=== PATIENT | female | born 1975 | race Caucasian/White ===

== ENCOUNTER 2016-08-06 08:27 | Day surgery (SDC) | payer OTHER ==
[~2016-08-06] VITALS: Ht 175.3 cm; Wt 85.3 kg
[2016-08-06 08:58] VITALS: Ht 175.3 cm; Wt 85.3 kg
[2016-08-06] MEDS ORDERED: SINGULAIR (09:04)
[2016-08-06] MEDS ORDERED: LANSOPRAZOLE (09:04)
[2016-08-06] MEDS ORDERED: MOMETASONE (09:04)
[2016-08-06] MEDS ORDERED: CLARITIN (09:04)
[2016-08-06 09:15] VITALS: BP 126/56; PULSE 90; RESP 15
[2016-08-06] MEDS ORDERED: LIDOCAINE 4% SOLUTION 50 ML BTL ONE (09:21)
[2016-08-06] MEDS ORDERED: MIDAZOLAM 1 MG/ML 2 ML INJ ONE ×3 (09:58)
[2016-08-06] MEDS ORDERED: FENTAnyl 50 MCG/ML VIAL ONE (09:58)
[2016-08-06 10:15] VITALS: BP 137/77; RESP 18
--- NOTE | 2016-08-06 12:02 | GILP ---
DATE OF PROCEDURE: INDICATION: A 40-year-old female undergoing this procedure for persistent epigastric pain for the l ast 2 to 3 years. The purpose is to evaluate upper GI tract and find out the cause of her symptoms. The risk of the procedure, related and unrelated complications, sedative risks, alternatives discu ssed and informed consent was obtained. DESCRIPTION OF PROCEDURE: The patient was brought to the GI lab, sedated with Versed 5 mg, fentanyl 100 mcg and also surfaces anesthetic. After optimal sedation, scope was passed with much ease into esophagus which was grossly within normal limits. Z line was regular and was at 40 cm. Stomach mu cosa revealed erosive gastritis, mostly in the antrum. Multiple biopsies obtained. Duodenum, first and second part appeared normal. Ampulla was normal. Retroversion done in the stomach which was n ormal. Scope was straightened out and 4 biopsies obtained and removed with good patient ashley ance. IMPRESSION: 1. Normal esophagus. 2. Z line at 40 cm which was regular. 3. Erosive gastritis, more so in antrum normal. 4. Normal duodenum and normal ampulla. PLAN: Review histopathology. This finding cannot explain made pain of this magnitude. She needs u ltrasound or a CAT scan. Dictated By: ROB GOLD/RIVER Conf#: [id number] DID#: [id number]
== END 2016-08-06 10:15 | disposition home or self-care (01) ==
LOC: GIL 08:27
PROVIDERS: ATTEND Internal Medicine Gastroenterology
DX: K29.60 Other gastritis without bleeding (principal)
CPT/HCPCS: 43239; 84703; 88305; 88312; J2250; J3010; Z7610

== ENCOUNTER 2016-08-08 09:19 | Day surgery (SDC) | payer OTHER ==
[2016-08-07 15:01] VITALS: BMI 29.3
[2016-08-08] VITALS (20 sets, daily range): BP systolic 106–134; BP diastolic 55–83; PULSE 60–96; RESP 14–25; Ht 175.3 cm; Wt 84.0 kg
[~2016-08-08] VITALS: Ht 175.3 cm; Wt 84.0 kg
[~2016-08-08 09:19] MED LIST: CLARITIN; LANSOPRAZOLE; MOMETASONE; SINGULAIR
[2016-08-08] MEDS ORDERED: CEFAZOLIN 2 GM/50 ML (PMX) 50 ML IVPB ONE (11:30)
[2016-08-08] MEDS ORDERED: SOD CHLORIDE 0.9% 1,000 ML IV SCH (11:30)
[2016-08-08] MEDS ORDERED: LORA10CA PO (13:52)
[2016-08-08] MEDS ORDERED: NASO17 NASAL (13:52)
[2016-08-08 13:55] LABS: ADD SCAN DIFF NO
[2016-08-08 13:58] LABS: BASOPHILS % 0.6 % (0.0-2.0); EOSINOPHILS # 0.2 10^3/ul (0.0-0.5); EOSINOPHILS % 3.2 % (0.0-7.0); HEMATOCRIT 34.6 % (37.0-47.0); LYMPHOCYTES # 2.1 10^3/ul (0.8-2.9); LYMPHOCYTES % 39.4 % (15.0-51.0); MEAN CORPUSCULAR HEMOGLOBIN 29.9 pg (29.0-33.0); MEAN CORPUSCULAR HGB CONC 34.7 g/dl (32.0-37.0); MEAN CORPUSCULAR VOLUME 86.3 fl (82.0-101.0); MEAN PLATELET VOLUME 10.5 fl (7.4-10.4); MONOCYTE # 0.6 10^3/ul (0.3-0.9); MONOCYTES % 10.4 % (0.0-11.0); NEUTROPHIL # 2.5 10^3/ul (1.6-7.5); NEUTROPHILS % 46.2 % (39.0-77.0); PLATELET COUNT 218 10^3/UL (140-415); RED BLOOD COUNT 4.01 10^6/ul (4.20-5.40); RED CELL DISTRIBUTION WIDTH 12.4 % (11.5-14.5); WHITE BLOOD COUNT 5.3 10^3/ul (4.8-10.8)
[2016-08-08] MEDS ORDERED: ISOSULFAN BLUE 1% 5 ML INJ SC ONE (14:06)
[2016-08-08 14:07] LABS: INR 1.09; PROTIME 14.1 Sec (12.2-14.2); PT RATIO 1.1
[2016-08-08 14:08] LABS: PARTIAL THROMBOPLASTIN TIME 30.1 Sec (25.0-35.0); POTASSIUM 3.7 mmol/L (3.5-5.1)
[2016-08-08 14:09] LABS: CREATININE 0.6 mg/dl (0.44-1.00)
[2016-08-08 14:10] LABS: CALCIUM 9.1 mg/dl (8.4-10.2)
[2016-08-08] MEDS ORDERED: PROPOFOL 20 ML ONE (14:27)
[2016-08-08] MEDS ORDERED: MIDAZOLAM 1 MG/ML 2 ML INJ ONE (14:28)
[2016-08-08] MEDS ORDERED: METOCLOPRAMIDE 10 MG INJ ONE (14:28)
[2016-08-08] MEDS ORDERED: FENTAnyl 50 MCG/ML VIAL ONE ×2 (14:28→14:55)
[2016-08-08] MEDS ORDERED: CEFAZOLIN 1 GM INJ ONE (14:43)
[2016-08-08] MEDS ORDERED: ONDANSETRON 4 MG INJ IV PRN ×2 (15:30→16:30)
[2016-08-08] MEDS ORDERED: METOCLOPRAMIDE 10 MG INJ IV PRN (15:30)
[2016-08-08] MEDS ORDERED: DIPHENHYDRAMINE 50 MG INJ IV PRN ×2 (15:30→23:00)
[2016-08-08] MEDS ORDERED: MEPERIDINE 25 MG INJ IV PRN (15:30)
[2016-08-08] MEDS ORDERED: HYDROmorphONE (0.2 MG/ML) 10ML SYG IV PRN ×2 (15:30)
[2016-08-08] MEDS ORDERED: OXYCODONE/ACETAMINOPHEN (5/325) TAB PO PRN ×2 (15:30)
[2016-08-08] MEDS ORDERED: EPHEDrine SULFATE 50 MG/5 ML SYG ONE (15:38)
[2016-08-08] MEDS: HYDROmorphONE (0.2 MG/ML) 10ML SYG IV PRN ×2 (16:26→16:32)
[2016-08-08] MEDS ORDERED: ACETAMINOPHEN 1000MG/100ML IV 100 ML IVPB PRN (16:30)
--- NOTE | 2016-08-08 17:23 | OPR ---
DATE OF OPERATION: 08/08/2016 PREOPERATIVE DIAGNOSIS: Invasive cancer of the left breast. POSTOPERATIVE DIAGNOSIS: Invasive cancer of the left breast. OPERATION PERFORMED: Needle-directed left partial mastectomy with axillary dissection utilizing sen tinel lymph node technique. ANESTHESIA: General. ANESTHESIOLOGIST: Denisse Hess MD SURGEON: Kris Beaver MD SECURITY SUPERVISOR: Del Hull MD INDICATIONS FOR PROCEDURE: The patient is a 40-year-old female who underwent surveillance mammograp hy. She was found to have an approximately 8 mm well-differentiated invasive cancer in her left christiane ast after a needle-guided biopsy. She consented and was scheduled for surgery. DESCRIPTION OF PROCEDURE: On the morning of surgery, the patient presented to [facility], where she underwent localization of the lesion performed by attending radiologi st Dr. Joseph ____. Subsequently, she was brought to the operating theater, placed under general an esthesia. The left breast and axillary region were prepped and draped in usual sterile fashion. Ap proximately 4 mL of 1% Lymphazurin blue dye was then injected peritumorally, and the breast was gent ly massaged for approximately 12 minutes. Subsequently, a 3 to 4 cm incision was made in the left a xillary hairline. Subcutaneous tissue was dissected with cautery down through the clavipectoral fas joe. The fascia was incised. A dye-stained lymphatic was identified. It was traced for several ce ntimeters until an obvious sentinel lymph node was identified. This lymph node was resected using t he LigaSure device and sent for intraoperative analysis performed by attending pathologist Dr. Ray Escobar. He stated that it was negative for evidence of metastatic disease. Therefore the wound was irrigated, and the minimal bleeding was controlled with cautery. Skin was then reapproximated w ith a 4-0 Vicryl suture in subcuticular fashion. Attention was then directed to performing the partial mastectomy. A periareolar incision was made f rom the 9-o'clock position through the 12-o'clock position to the 3-o'clock position of the nipple. Subcutaneous tissue was dissected with cautery. The skin edges were elevated with skin hooks, and wide circumferential dissection took place, taking great care to ensure adequate margin. Specimen w as elevated. The underlying breast subglandular breast implant was inspected and remained intact. The specimen was then sent for radiographic confirmation of capture. Capture was confirmed, and the specimen was sent for permanent pathologic analysis. The wound was irrigated. Minimal bleeding wa s controlled with cautery. The skin was then closed with 4-0 Vicryl sutures in deep dermal interrup lelia fashion followed by final skin approximation with 5-0 PDS sutures. Dermabond was then applied t o both incisions. The patient tolerated the procedure well. The estimated blood loss was 30 mL. T here were no complications, and the patient was transported in stable condition to the recovery room . Dictated By: KRIS FREEMAN/RIVER Conf#: [id number] DID#: [id number]
[2016-08-08] MEDS: D5W-0.45 NACL + KCL 20 MEQ 1,000 ML IV SCH (17:38)
[2016-08-08] MEDS: morphine 2 MG INJ IV PRN ×2 (17:56→21:18)
[2016-08-09] MEDS: D5W-0.45 NACL + KCL 20 MEQ 1,000 ML IV SCH ×2 (00:54→08:06)
[2016-08-09] MEDS: morphine 2 MG INJ IV PRN ×4 (00:57→16:02)
[2016-08-09] MEDS ORDERED: LORAZEPAM 2 MG INJ IV ONE (02:15)
[2016-08-09 05:11] VITALS: BP 116/58; PULSE 84; RESP 18
[2016-08-09 08:06] VITALS: BP 110/71; RESP 18
--- NOTE | 2016-08-09 12:20 | PN ---
DATE: Postop day #1 left partial mastectomy with sentinel node axillary dissection. SUBJECTIVE: The patient states that she was feeling a swollen hand and has been nervous. She has b een given Ativan 1mg IV and now she feels better. OBJECTIVE: VITAL SIGNS: Stable, temperature 98.4 and 97. EXTREMITIES: Left hand warm. Pulse is present. Moves all the fingers. Dressing is intact. ASSESSMENT: Postop day #1 partial mastectomy with axillary sentinel lymph node technique dissection . The patient is stable. PLAN: The patient can be discharged home, to be followed by Dr. Beaver' office and to call Dr. Beaver and make an appointment. Instruction was given to the patient. No Juan-Reeves drain is in place . Dictated By: RONDA ZAMORA MD PS/NTS Conf#: [id number] DID#: [id number]
[2016-08-09] MEDS ORDERED: HYDR-3498 NGT (12:24)
[2016-08-09] MEDS ORDERED: HYDROCODONE/APAP (5/325) TAB NGT PRN (12:30)
--- NOTE | 2016-08-09 12:32 | HP ---
DATE OF ADMISSION: 08/08/2016 HISTORY OF PRESENT ILLNESS: The patient is a 40-year-old female who underwent surveillance mammogra phy and found to have approximately 8 mm left differentiated invasive cancer in her left breast whic h was confirmed by biopsy. The patient with past medical history of sinusitis. The patient was stephon luated by Dr. Beaver in general surgery consultation and was brought to the hospital and underwent le ft partial mastectomy with axillary dissection utilizing sentinel lymph node technique. Postoperati vely, the patient experienced some significant pain and was admitted for further evaluation and kacey guajardo. PAST MEDICAL HISTORY: Positive for sinusitis. PAST SURGICAL HISTORY: Status post left knee surgery, status post sinus surgery, status post bilate ral breast implants. FAMILY HISTORY: Negative for breast or ovarian cancer. SOCIAL HISTORY: Patient lives at home with her family. The patient denies any tobacco use, denies any alcohol use, denies any illicit drug use. HOME MEDICATIONS: Include Claritin and Nasonex. REVIEW OF SYSTEMS: A 12-point review of systems is negative unless mentioned in the HPI. PHYSICAL ASSESSMENT GENERAL: Well-developed, well-nourished female in no acute distress. VITAL SIGNS: Temperature 98.4, pulse is 79, blood pressure 110/71, respiratory rate 18, oxygen satu ration 97% on room air. HEENT: Head is atraumatic, normocephalic. Pupils equal, round, reactive to light and accommodation . Oral mucosa is pink and moist. NECK: Supple, no cervical lymphadenopathy, no thyromegaly. CHEST: Lungs clear bilaterally. There is no rhonchi, wheezes, rales noted. CARDIOVASCULAR: Normal S1, S2. No murmurs, gallops, clicks, rubs noted. ABDOMEN: Round, soft, nondistended, nontender. Bowel sounds present in all 4 quadrants. No guardi ng, no rebound tenderness. EXTREMITIES: There is no edema, clubbing, cyanosis. Pulses equal bilaterally 2+. SKIN: No rash, petechiae noted. The patient has an intact, dry, clean surgical chest dressing. NEUROLOGIC: Patient is awake, alert and oriented x4. No focal deficits noted. Motor strength 5/5 in all extremities. LABORATORY DATA: On admission, CBC: White blood cells 5.3, hemoglobin 12.0, hematocrit 34.6, plate lets 218. Chemistry: Sodium is 143, potassium 3.7, chloride 107, carbon dioxide 22, anion gap 18, BUN is 9, creatinine 0.6, glucose 88, calcium 9.1. ASSESSMENT AND PLAN: Invasive cancer of the left breast status post needle-directed left partial mas tectomy and axillary dissection utilizing sentinel lymph node technique by Dr. Beaver. We will admit the patient to medical/surgical floor. Continue IV fluids. Continue Zofran p.r.n. for nausea and morphine and Tylenol p.r.n. for pain. Advance diet as patient tolerates. Continue incentive spirom eter q.1 hour while the patient is awake. Continue sequential compression devices for deep venous t hrombosis prophylaxis. Further recommendations based on clinical course. Plan of care discussed wi Dr. Loredo. Dictated By: LATISHA ENGLE CHIEF LOCK OPERATOR for WILLIAMS LOREDO MD SR/NTS Conf#: [id number] DID#: [id number]
== END 2016-08-09 18:35 | disposition home or self-care (01) ==
LOC: SDS 09:19 → MS1 17:45 → SDS 08-09 18:35
PROVIDERS: ATTEND Surgery Surgical Oncology
DX: N60.32 Fibrosclerosis of left breast (principal); N64.1 Fat necrosis of breast
CPT/HCPCS: 19301; 38500; 38792; 80048; 84703; 85025; 85610; 85730; 88307; 88331; J0690; J1170; J1200; J2060; J2175; J2250; J2270; J2405; J2765; J3010; J3480; Z7512; Z7610; 88342; Q9968

== ENCOUNTER 2016-08-24 17:30 | Emergency (ER) | payer OTHER ==
[~2016-08-24] VITALS: Wt 71.0 kg
[~2016-08-24 17:30] MED LIST changes: -CLARITIN; +HYDR-3498 NGT; -LANSOPRAZOLE; +LORA10CA PO; -MOMETASONE; +NASO17 NASAL; -SINGULAIR
[2016-08-24] MEDS ORDERED: AMOX1TAB10 PO (18:26)
[2016-08-24] MEDS ORDERED: FLUC150T17 PO (18:59)
--- NOTE | 2016-08-24 22:50 | ERD ---
ER Documentation Chief Complaint Date/Time DATE: 08/24/16 TIME: 22:46 Chief Complaint HEADACHE DUE TO POSSIBLE SINUS INFECTION HPI 41-year-old female presenting complaining of facial pain and headache. She has a history of breast cancer status post lumpectomy and chronic sinusitis and was recently treated with clindamycin without relief of her symptoms. She states she has pain more on the right side of her face than the left. She has associated headaches, fatigue, chills without fever. She has a runny nose with clear drainage. She has tried nasal rinses and allergy medications without relief. She is taking Tylenol for her headaches. She denies any nausea, vomiting, earache, dental pain, vision disturbance, difficulty walking. She has been referred to ENT physician and is awaiting her appointment. ROS All systems reviewed and are negative except as per history of present illness. Medications Home Meds Active Scripts Fluconazole* (Diflucan*) 150 Mg Tablet, 150 MG PO ONCE, #1 TAB Prov:ROSE ZAPATA MD 08/24/16 Amoxicillin/Potassium Clav (Amox-Clav 875-125 mg Tablet) 875-125 mg Tab, 1 TAB PO BID for 7 Days, #14 TAB Prov:ROSE ZAPATA MD 08/24/16 Hydrocodone Bit-Acetaminophen (Hydrocodone Bit-APAP) 5-325MG Tablet, 1 TAB NGT Q4H Y for PAIN, #30 TAB Prov:LATISHA ENGLE 08/09/16 Reported Medications Mometasone Furoate* (Nasonex*) 50 Mcg/[place] - 17 Gm [place].pump, 1 SPRAY NASAL DAILY, #1 BOTTLE TO EACH NOSTRIL 08/08/16 Loratadine* (Claritin*) 10 Mg Capsule, 10 MG PO DAILY, CAP 08/08/16 Allergies Allergies: Coded Allergies: latex (Verified Allergy, Unknown, 08/06/16) sulfamethoxazole (Verified Adverse Reaction, Unknown, 08/06/16) trimethoprim (Verified Adverse Reaction, Unknown, 08/06/16) PMhx/Soc History of Surgery: Yes (LT KNEE SX BREAST IMPLANT, SINUS SX) Anesthesia Reaction: No Hx Neurological Disorder: No Hx Respiratory Disorders: No Hx Cardiac Disorders: Yes Hx Psychiatric Problems: No Hx Miscellaneous Medical Probl: No (LT BREAST LUMP REMOVED) Hx Alcohol Use: No Hx Substance Use: No Hx Tobacco Use: No FmHx Family History: No diabetes Physical Exam Vitals Vital Signs Date Time Temp Pulse Resp B/P Pulse Ox O2 Delivery O2 Flow Rate FiO2 08/24/16 17:36 98.0 93 18 134/63 99 Physical Exam Const: No apparent distress, nontoxic Head: Atraumatic Eyes: Normal Conjunctiva, no drainage ENT: Normal External Ears, Nose and Mouth. No nasal drainage. Facial tenderness to palpation right greater than left over all sinuses. Posterior oropharynx normal. Neck: Full range of motion. No lymphadenopathy. No meningismus. Resp: Clear to auscultation bilaterally Cardio: Regular rate and rhythm, no murmurs Abd: Soft, non tender, non distended. Normal bowel sounds Skin: No petechiae or rashes Back: No midline or flank tenderness Ext: No cyanosis, or edema Neur: Awake and alert and oriented 3, no facial asymmetry, normal gait, strength and sensations intact in all 4 extremities Psych: Normal Mood and Affect Procedures/MDM Patient is presenting with symptoms consistent with acute on chronic sinusitis. She is afebrile with normal vitals. It is unlikely her symptoms are secondary to bacterial infection and are most likely related to her allergies. However the patient is insistent on trying antibiotics. I offered her prescription for Augmentin and advised she follow-up with her ENT doctor if that does not help. I do not suspect meningitis or intracranial abscess. Patient is appropriate for outpatient workup and treatment. She was discharged in stable condition. Diflucan was given as requested to use as needed for possible yeast infection after antibiotic use. Departure Diagnosis: Primary Impression: Sinusitis Sinusitis location: unspecified location Chronicity: subacute Qualified Code: J01.90 - Subacute sinusitis, unspecified location Condition: Stable Patient Instructions: Chronic Sinusitis, Sinusitis, Abx Tx ROSE ZAPATA MD Aug 24, 2016 22:50
== END 2016-08-24 19:03 | disposition home or self-care (01) ==
LOC: FTE 17:30
DX: J01.90 Acute sinusitis, unspecified (principal); Z85.3 Personal history of malignant neoplasm of breast; Z91.040 Latex allergy status
CPT/HCPCS: 99284

== ENCOUNTER 2018-04-18 18:57 | Inpatient (IN) | END 2018-04-20 18:56 | disposition short-term general hospital (02) | DRG 862 ==

== ENCOUNTER 2018-04-27 00:18 | Emergency (ER) | END 2018-04-27 00:56 | disposition home or self-care (01) ==

== ENCOUNTER 2018-09-15 16:19 | Emergency (ER) | payer OTHER ==
[~2018-09-15] VITALS: Ht 175.3 cm; Wt 102.4 kg
[~2018-09-15 16:19] MED LIST changes: +BEN50 PO; +BUPR300T48 PO; +ESCI10TA PO; -HYDR-3498 NGT; -LORA10CA PO; +LORA10TA3 PO; -NASO17 NASAL; +PIPE3.374 IVPB
[2018-09-15 16:22] VITALS: Ht 175.3 cm; Wt 102.4 kg
[2018-09-15] MEDS ORDERED: ONDANSETRON 4 MG INJ IV STA (17:34)
[2018-09-15] MEDS ORDERED: HYDROmorphONE 1 MG/ML SYG IV STA (17:34)
--- NOTE | 2018-09-15 19:41 | ERD ---
ER Documentation Chief Complaint Chief Complaint pt bib self with c/o "elevated liver tests" just dc'ed hepitis/celluli AP HPI This is a 43-year-old female with a complicated past medical history. The patient was initially diagnosed with left-sided breast carcinoma in June 2016. She had a partial meniscectomy. In July 2017 the patient underwent an implant in her left breast however there is comp occasions secondary to rad iation. In March 2018 the patient developed a infection of the left breast and the implant subsequent Chris had to be removed. Her surgeon is Dr. Rubi. The patient indicated that in August 11, 2018 at [facility] the patient had supply coordinator replacement and fat grafting of the left breast. She indicated that 21 days postoperatively she developed fever shaking and chills and was diagnosed with an infection. Another surgical procedure have been performed to remove the supply coordinator implant. The patient was discharged from [facility] 3 days prior to arrival with elevated liver enzymes. The patient has a some drainage in her left breast. She states she has had no fevers or shaking or chills. She is scheduled to see her rejogger oncologist in 48 hours and also has an appointment with a outsole handler and oil well logger. She is also following up with her surgeon. The patient states her main reason for coming to the emergency department today she was upset that she had been discharged from [facility] without further repeat of her liver enzymes. She indicated that they had performed liver function tests on September 13, 2018 at 6:40 AM, 48 hours prior to arrival. Her alkaline phosphatase was 327. Her ALT was 1148. Her AST was 312. Her total bilirubin was 0.4. The patient indicates she had no abdominal pain. No hemoptysis no hematemesis no melanotic stools. She denies any shortness of breath at rest or exertion. She underwent an abdominal MRI with and without contrast several days ago at [facility] prior to being discharged as well as a liver ultrasound that indicated hepatomegaly. ROS All systems reviewed and are negative except as per history of present illness. Medications Home Meds Active Scripts Xrlihdnngigq-Nrer-Heyisvhj,Iso (ZOSYN 3.375 GM GALAXY BAG) 3.375 Gm/50 Ml Froz.piggy, 3.375 GM IVPB Q6 for 14 Days, EA Prov:WILBUR BLACKWELL V. ENGROSSER 04/20/18 Reported Medications Diphenhydramine Hcl* (Benadryl*) Unknown Strength Cap, 1 TAB PO QHS PRN for ITCHING, CAP 04/18/18 Loratadine* (Loratadine*) 10 Mg Tablet, 10 MG PO DAILY, #30 TAB 04/18/18 Escitalopram Oxalate* (Lexapro*) 10 Mg Tablet, 10 MG PO DAILY, #30 TAB 04/18/18 Bupropion Hcl* (Wellbutrin XL*) 300 Mg Tab.sr.24h, 300 MG PO DAILY, TAB.SA 04/18/18 Allergies Allergies: Coded Allergies: adhesive tape (Verified Allergy, Intermediate, blister, 04/27/18) bacitracin (Verified Allergy, Intermediate, rash, 04/27/18) latex (Verified Allergy, Unknown, 04/18/18) sulfamethoxazole (Verified Adverse Reaction, Unknown, 04/18/18) trimethoprim (Verified Adverse Reaction, Unknown, 04/18/18) PMhx/Soc History of Surgery: No (07/2017 and 04/09/18 breast reconstruction.2017 partial mastectomy) Anesthesia Reaction: No Hx Neurological Disorder: No Hx Respiratory Disorders: No Hx Cardiac Disorders: No Hx Psychiatric Problems: Yes (Depression ) Hx Miscellaneous Medical Probl: No Hx Alcohol Use: No Hx Substance Use: No Hx Tobacco Use: No Smoking Status: Never smoker Physical Exam Vitals Vital Signs Date Temp Pulse Resp B/P (MAP) Pulse Ox O2 O2 Flow FiO2 Time Delivery Rate 09/15/18 84 18 123/77 98 Room Air 18:45 (92) 09/15/18 97.7 100 20 126/84 96 16:22 (98) Physical Exam Constitutional:Well-developed. Well-nourished. HEENT:Normocephalic. Atraumatic.Pupils were equal round reactive to light. Moist mucous membranes.No tonsillar exudates. Neck: No nuchal rigidity. No lymphadenopathy. No posterior cervical spine tenderness or step-offs. Respiratory: Not using accessory muscles of respiration.Lungs were clear to auscultation bilaterally. No rhonchi. No rales. No wheezing. Breast: Significant scarring around the left breast with previous partial meniscectomy and surgical incision site is clean dry and intact with drainage device and tubing present with serosanguineous drainage. No fluctuance no induration no pain out of proportion to physical exam. No tenderness erythremia or warmth surrounding the left breast. Cardiovascular: Regular rate regular rhythm.No murmurs. No rubs were appreciated.S1, S2 normal. Distal pulses are palpable 2+ bilaterally. GI: Abdomen was soft. Nontender. No hepatomegaly. Non Distended. No pulsatile abdominal masses or bruits. No rebound. No guarding. Bowel sounds were present and normal. Muscle skeletal: Full range of motion of both the upper and lower extremities bilaterally.Normal muscle tone.No assymetrical calf tenderness or swelling. Skin: No petechia, no purpura. No lesions on the palms or the soles of the feet. No maculopapular rash. NEURO: Patient was alert, awake, orientated x3.No facial droop. Gait observed and normal with no ataxia.Speech had regular rate and rhythm. No focal neurological deficits. Result Diagram: 09/15/18 1741 09/15/18 1741 Results 24 hrs Laboratory Tests Test 09/15/18 17:41 White Blood Count 7.0 10^3/ul Red Blood Count 4.90 10^6/ul Hemoglobin 13.8 g/dl Hematocrit 41.9 % Mean Corpuscular Volume 85.5 fl Mean Corpuscular Hemoglobin 28.2 pg Mean Corpuscular Hemoglobin Concent 32.9 g/dl Red Cell Distribution Width 13.2 % Platelet Count 336 10^3/UL Mean Platelet Volume 9.6 fl Immature Granulocytes % 0.900 % Neutrophils % 67.0 % Lymphocytes % 18.8 % Monocytes % 8.1 % Eosinophils % 4.5 % Basophils % 0.7 % Nucleated Red Blood Cells % 0.0 /100WBC Immature Granulocytes # 0.060 10^3/ul Neutrophils # 4.7 10^3/ul Lymphocytes # 1.3 10^3/ul Monocytes # 0.6 10^3/ul Eosinophils # 0.3 10^3/ul Basophils # 0.1 10^3/ul Nucleated Red Blood Cells # 0.0 10^3/ul Prothrombin Time 12.9 Sec Prothrombin Time Ratio 1.0 INR International Normalized Ratio 0.96 Activated Partial Thromboplast Time 31.2 Sec Sodium Level 140 mmol/L Potassium Level 4.6 mmol/L Chloride Level 104 mmol/L Carbon Dioxide Level 26 mmol/L Anion Gap 10 Blood Urea Nitrogen 12 mg/dl Creatinine 0.75 mg/dl Est Glomerular Filtrat Rate mL/min > 60 mL/min Glucose Level 115 mg/dl Calcium Level 10.1 mg/dl Total Bilirubin 0.1 mg/dl Direct Bilirubin 0.00 mg/dl Indirect Bilirubin 0.1 mg/dl Gamma Glutamyl Transpeptidase 428 IU/L Aspartate Amino Transf (AST/SGOT) 364 IU/L Alanine Aminotransferase (ALT/SGPT) 1111 IU/L Alkaline Phosphatase 618 IU/L Total Protein 8.5 g/dl Albumin 4.4 g/dl Globulin 4.10 g/dl Albumin/Globulin Ratio 1.07 Amylase Level 95 U/L Lipase 222 U/L Current Medications Medications Dose Sig/Arie Start Time Status Last (Trade) Ordered Route PRN Stop Time Admin Dose Reason Admin 1 mg ONCE STAT 09/15/18 DC 09/15/18 Hydromorphone IV 17:34 17:47 HCl 09/15/18 17:35 (Dilaudid) Ondansetron 4 mg ONCE STAT 09/15/18 DC 09/15/18 HCl (Zofran IV 17:34 17:47 Inj) 09/15/18 17:35 Procedures/MDM This is a very pleasant 43-year-old female presented to the emergency department with postoperative transaminitis. The patient stated she had not taken any analgesic medication since being discharged from [facility] she was concerned with the acetaminophen as she been prescribed [place] and did not want to worsen her liver enzymes. Therefore the patient was given IV Dilaudid and Zofran for analgesic control. There is no signs of postoperative infection. I obtained ancillary laboratory work and liver enzymes as requested by the patient. She did have resolved I was able to compare from [facility]. The patient's liver enzymes were still elevated with an alkaline phosphatase of 618 and several days ago was 327. The patient's AST was 1111 with mild improvement from the previous 1148 on September 13. Patient's AST was 364 compared to 312. The patient had no evidence of jaundice. No physical exam findings to suggest postoperative infection. The patient did feel comfortable being discharged as she has very good outpatient fo llow-up for further etiology into the transaminitis. The patient was discharged home in fair condition. They were instructed to return to the emergency department at any time if there was any worsening of their condition. The patient stated they would follow up with their PCP in the next 24-48 hours to initiate a suitable medication regimen under the care of their PCP as well as to allow their PCP to monitor any drug reactions. The patient was discharged home with prescriptions after they gave informed consent to the new medication. They were also fully informed by myself on the adverse effects and adverse drug interactions in order to provide adequate safeguards to prevent possible adverse reactions to medications. Critical Care: Time: 35 minutes Treatments/Evaluations: Close monitoring and treatment of unstable vital signs, cardiorespiratory, and neurologic status, while maintaining tight balance of fluid, respiratory, and cardiac interventions. Time does not include performing any of the above billable procedures. Departure Diagnosis: Primary Impression: Encounter for laboratory test Additional Impression: Transaminitis Condition: TERI Elias MD Sep 15, 2018 19:41
[2018-09-15] MEDS ORDERED: CEPH-443 PO (20:21)
[2018-09-15 20:43] VITALS: BP 122/70; PULSE 82; RESP 17
== END 2018-09-15 20:44 | disposition home or self-care (01) ==
LOC: E/R 16:19
DX: R74.0 Nonspecific elevation of levels of transaminase and lactic acid dehydrogenase [LDH] (principal); Z00.00 Encounter for general adult medical examination without abnormal findings; Z91.040 Latex allergy status
CPT/HCPCS: 36415; 80053; 82150; 82977; 83690; 85025; 85610; 85730; 96374; 96375; J1170; J2405; Z7502